=== PATIENT | male | born 1995 | race Caucasian/White ===

== ENCOUNTER 2017-02-24 18:58 | Emergency (ER) | payer OTHER ==
[2017-02-24 19:12] VITALS: TEMP 97.7
--- NOTE | 2017-02-24 19:42 | EDPHY ---
H & P Stated Complaint: episoide blurry vision this am approx 10 min, diff speaking resolved Time Seen by Provider: 02/24/17 19:41 - Personal History Current Tetanus Diphtheria and Acellular Pertussis (TDAP): Yes - Medical/Surgical History Hx Asthma: No Hx Chronic Respiratory Disease: No Hx Diabetes: No Hx Cardiac Disease: No Hx Renal Disease: No Hx Cirrhosis: No Hx Alcoholism: No Hx HIV/AIDS: No Hx Splenectomy or Spleen Trauma: No Other PMH: denies - Social History Smoking Status: Never smoked Constitutional: Initial Vital Signs Temperature (C) 36.5 C 02/24/17 19:09 Heart Rate 72 02/24/17 19:09 Respiratory Rate 18 02/24/17 19:09 Blood Pressure 142/83 H 02/24/17 19:09 O2 Sat (%) 97 02/24/17 19:09 O2 Delivery Mode Room Air Allergies/Adverse Reactions: No Known Allergies Allergy (Unverified 02/24/17 19:09) Home Medications: Medication Instructions Recorded NK [No Known Home Meds] 02/24/17 Medical Decision Making ED Course/Re-evaluation: CHIEF COMPLAINT: Vision changes and difficulty with word finding - resolved HISTORY OF PRESENT ILLNESS: The patient is a 21 y/o male arriving with his brother for evaluation of acute onset vision changes and word finding difficulty that has since resolved. He has a history of migraines at a child, but has not experienced any as an adult. This morning while reading he developed "stains in the middle of my vision" and it looked like "letters were missing" as he was trying to read. This improved, then around 14:00, about 6 hours ago, he began have word finding difficulty and using incorrect words. This was associated with transient left eye pain. He has never had symptoms like this previously. No recent trauma or illness. He denies weakness, paresthesias, fever, severe headache, or other complaints. He currently feels back to normal. He uses marijuana daily. REVIEW OF SYSTEMS: A 10 point review of systems was performed and is negative with the exception of the elements mentioned in the history of present illness. PHYSICAL EXAM: HR, BP, O2 Sat, RR. Temp noted General Appearance: Alert, well hydrated, appropriate, and non-toxic appearing. Head: Atraumatic without scalp tenderness or obvious injury Eyes: Pupils equal, round, reactive to light and accommodation, EOMI, no trauma , no injection. Ears: Clear bilaterally, no perforation, normal landmarks Nose: Atraumatic, no rhinorrhea, clear. Throat: There is no erythema or exudates, no lesions, normal tonsils, mucus membranes moist. Neck: Supple, nontender, no lymphadenopathy. Respiratory: No retractions, no distress, no wheezes, and no accessory muscle use. Lungs are clear to auscultation bilaterally. Cardiovascular: Regular rate and rhythm, no murmurs, rubs, or gallops. Good capillary refill all extremities. Gastrointestinal: Abdomen is soft, nontender, non-distended, no masses, no rebound, no guarding, no peritoneal signs. Musculoskeletal: Normal active ROM of all extremities, atraumatic. Neurological: Alert, appropriate, and interactive. The patient has normal DTRs and non-focal cranial nerves, motor, sensory, and cerebellar exam. Skin: No rashes, good turgor, no nodules on palpation. Past medical history: Migraines when he was a child Past surgical history: denies Family history: noncontributory Social history: Brother at bedside. Visiting from out-of-town, from [place]. Has been backpacking in [place] for the last few months. Daily marijuana use. DIFFERENTIAL DIAGNOSIS: The differential diagnosis for the patient's neurologic deficits included but was not limited to peripheral causes, central causes including CVA, TIA, electrolyte abnormalities and dehydration, cardiogenic causes, atypical causes like migraine syndrome. MEDICAL DECISION MAKING: This is a healthy 21 y/o male with a remote history of migraines who presents with now resolved visual disturbances and word-finding difficulty approximately 6 hours ago. He is neurovascularly intact on exam with a completely normal exam. His symptoms are consistent with an atypical migraine, but could also be a TIA or other neurologic process. Plan for brain MRI without IV contrast. 2100: Patient care signed out at shift change to Dr. Acharya pending brain MRI. If MRI is normal, patient will be discharged with atypical migraine care instructions. Departure - Departure Disposition: Home, Routine, Self-Care Clinical Impression: Atypical migraine Condition: Good Instructions: Ocular Migraine (ED) Additional Instructions: Follow up with a neurologist within the next week. You've been referred to Dr. Hui. Return for any worsening of condition. Referrals: NONE *PRIMARY CARE P,. [Primary Care Provider] - As per Instructions Andrea Hui MD [Medical Doctor] - As per Instructions Report Scribed for: Luis Steele Report Scribed by: Elma Oropeza Date of Report: 02/24/17 Time of Report: 19:59
[2017-02-24 21:56] VITALS: BP 147/83; PULSE 65; RESP 14; O2SAT 99
== END 2017-02-24 21:56 | disposition home or self-care (01) ==
DX: G43.909 Migraine, unspecified, not intractable, without status migrainosus (principal)